=== PATIENT | male | born 1960 | race Caucasian/White ===

== ENCOUNTER 2022-03-12 12:18 | Emergency (ER) | payer BC ==
[~2022-03-12] VITALS: Ht 162.6 cm; Wt 57.6 kg
[2022-03-12 12:36] VITALS: BP 122/62
[2022-03-12] MEDS ORDERED: HYDROcodone/APAP 5/325 MG 1 TAB TAB PO ONE (14:25)
[2022-03-12] MEDS ORDERED: IBUPROFEN 600 MG TAB PO ONE (14:25)
[2022-03-12] MEDS ORDERED: LIDOCAINE/EPI 1% 1:100000 20 ML VIAL INJ ONE (14:25)
--- NOTE | 2022-03-12 14:30 | NUR ---
61 y/o male bib from home, c/o right perianal abscess for 2 weeks. pt states it started off as a small bump that grew in size last week. upon assessment, pt has large abscess on right side of buttocks, redness on area and swelling. denies fevers, chills, sob, cp, cough. pt describes pain as sharp and constant, pain worsens with sitting. pmh: asthma nka med: denies
[2022-03-12] MEDS ORDERED: METR-435 PO (15:53)
[2022-03-12] MEDS ORDERED: CIPR500T9 PO (15:53)
[2022-03-12] MEDS ORDERED: IBUP-2213 PO (15:53)
[2022-03-12] MEDS ORDERED: ACET-8386 PO (15:53)
--- NOTE | 2022-03-12 16:00 | NUR ---
Patient discharged with v/s stable. Written and verbal after care instructions given and explained. Patient alert, oriented and verbalized understanding of instructions. Ambulatory with steady gait. All questions addressed prior to discharge. ID band removed. Patient advised to follow up with PMD. Rx of hydrocodone, ciprofloxacin, ibuprofen, metronidazole (sent and script) given. Patient educated on indication of medication including possible reaction and side effects. Opportunity to ask questions provided and answered. copy of work note given
--- NOTE | 2022-03-12 16:00 | NUR ---
[facility] bone in [facility] - 03/12/22 at 1600 by OSWALDO d
[2022-03-12 16:04] VITALS: BP 122/62
== END 2022-03-12 16:04 | disposition home or self-care (01) ==
LOC: MED 12:18
DX: K61.0 Anal abscess (principal); J45.909 Unspecified asthma, uncomplicated
CPT/HCPCS: 46050; 99284; J2001

== ENCOUNTER 2022-03-14 17:26 | Emergency (ER) | payer BC ==
[~2022-03-14] VITALS: Ht 172.7 cm; Wt 58.1 kg
[~2022-03-14 17:26] MED LIST: ACET-8386 PO; CIPR500T9 PO; IBUP-2213 PO; METR-435 PO
--- NOTE | 2022-03-14 18:11 | NUR ---
NO ANSWER WHEN CALLED TO TRIAGE
--- NOTE | 2022-03-14 18:32 | NUR ---
SECOND NO ANSWER TO TRIAGE
[2022-03-14 18:53] VITALS: BP 127/75
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
[2022-03-14 20:39] VITALS: BP 115/64
--- NOTE | 2022-03-14 20:39 | NUR ---
Patient discharged with v/s stable. Written and verbal after care instructions ABOUT ANORECTAL ABSCESS given and explained. Patient verbalized understanding. Ambulatory with steady gait. All questions addressed prior to discharge. Advised to follow up with PMD.
== END 2022-03-14 20:39 | disposition home or self-care (01) ==
LOC: MED 17:26
DX: K61.0 Anal abscess (principal); J45.909 Unspecified asthma, uncomplicated; Z79.899 Other long term (current) drug therapy
CPT/HCPCS: 99281